=== PATIENT | female | born 1975 | race Caucasian/White ===

== ENCOUNTER 2016-05-13 09:24 | Emergency (ER) | payer OTHER ==
[2016-05-13 10:05] VITALS: BP 154/91
--- NOTE | 2016-05-13 10:38 | UC ---
Palpitation/Dysrhythmia HP - HPI Summary HPI Summary: 40 YO female states she had had palpitations and anxiety that started soon after having her gall bladder out last month some vague chest discomfort no SOB she has had tremors - History of Current Complaint Chief Complaint: UCChestPain Stated Complaint: BLOOD PRESSURE CONCERNS Time Seen by Provider: 05/13/16 10:17 Hx Obtained From: Patient Hx Last Menstrual Period: 11/28/15 Onset/Duration: Gradual Onset, Lasting Weeks Timing: Constant Severity Initially: Mild Severity Currently: Moderate Pain Intensity: 2 Pain Scale Used: 0-10 Numeric Character: Fast, Pounding Alleviating Factor(s): Nothing Associated Signs & Symptoms: Positive: Chest Pain. Negative: Lightheadedness, Dizzy, Syncope, Shortness of Breath, Diaphoresis, Nausea, Vomiting - Risk Factors Pulmonary Embolism: Recent Surgery - Allergy/Home Medications Allergies/Adverse Reactions: Allergies Allergy/AdvReac Type Severity Reaction Status Date / Time Amoxicillin Allergy Rash Verified 05/13/16 10:00 Penicillins Allergy Rash Verified 05/13/16 10:00 Sulfa Antibiotics Allergy Vomiting Verified 05/13/16 10:00 Home Medications: Home Medications Bismuth Subsalicylate* [Peptic Relief*] 527 mg PO Q2H PRN 05/13/16 [History Confirmed 05/13/16] Lisinopril TAB* [Prinivil TAB*] 10 mg PO DAILY 05/13/16 [History Confirmed 05/13] Simethicone [Gas-X Extra Strength] 125 - 250 mg PO Q24H PRN 05/13/16 [History Confirmed 05/13/16] PMH/Surg Hx/FS Hx/Imm Hx Endocrine History Of: Denies: Diabetes, Thyroid Disease Cardiovascular History Of: Reports: Cardiac Disorders - murmur, Hypertension Respiratory History Of: Denies: COPD, Asthma GI/ History Of: Denies: Ulcer - Surgical History Surgical History: Yes Surgery Procedure, Year, and Place: Cholecystectomy, 04/11/16, [place]; C- Section, 2012, [place]; , 2003, [place]; T&A, ~1981, [place] - Family History Known Family History: Positive: Hypertension, Diabetes, Other - no hx DVT - Social History Alcohol Use: None Substance Use Type: None Smoking Status (MU): Never Smoked Tobacco - Immunization History Most Recent Influenza Vaccination: 04/12/16 Review of Systems Constitutional: Negative Skin: Negative Eyes: Negative ENT: Negative Respiratory: Negative Cardiovascular: Palpitations, Chest Pain Gastrointestinal: Negative Genitourinary: Negative Motor: Negative Neurovascular: Negative Musculoskeletal: Negative Neurological: Negative Psychological: Negative All Other Systems Reviewed And Are Negative: Yes Physical Exam Triage Information Reviewed: Yes Appearance: Well-Appearing, No Pain Distress, Well-Nourished, Obese Vital Signs: Initial Vital Signs Temp 98.7 F 05/13/16 09:46 Pulse 124 05/13/16 09:46 Resp 18 05/13/16 09:46 BP 154/91 05/13/16 09:46 Pulse Ox 100 05/13/16 09:46 Vital Signs Reviewed: Yes Eyes: Positive: Conjunctiva Clear ENT: Positive: Normal ENT inspection Neck: Positive: Supple, Nontender, No Lymphadenopathy Respiratory: Positive: Lungs clear, Normal breath sounds, No respiratory distress Cardiovascular: Positive: RRR, No Murmur, Tachycardia Musculoskeletal: Positive: ROM Intact, No Edema Neurological: Positive: Alert Psychological Exam: Normal Skin Exam: Normal Diagnostics - EKG Cardiac Rate: Tachycardia Ectopy: None ST Segment: Normal Palpitations Course/Dx - Course Course Of [facility] to ER - Differential Dx/Diagnosis Provider Diagnoses: palpitations/sinus tachycardia/recent surgery Discharge - Discharge Plan Condition: Stable Disposition: [facility] Referrals: VIOLA Good [Primary Care Provider] -
== END 2016-05-13 10:32 | disposition left against medical advice (07) ==
LOC: UCCORT 09:24
DX: R00.2 Palpitations (principal); R00.0 Tachycardia, unspecified; Z90.49 Acquired absence of other specified parts of digestive tract; Z98.890 Other specified postprocedural states; Z88.1 Allergy status to other antibiotic agents; Z88.0 Allergy status to penicillin; Z88.2 Allergy status to sulfonamides; R01.1 Cardiac murmur, unspecified; I10 Essential (primary) hypertension
CPT/HCPCS: 93005; 99212; G0463

== ENCOUNTER 2017-07-04 08:04 | Emergency (ER) | payer OTHER ==
[2017-07-04 08:42] VITALS: BP 139/65
--- NOTE | 2017-07-04 08:52 | UC ---
Throat Pain/Nasal [place]den HPI - HPI Summary HPI Summary: SINUS PAIN AND PRESSURE X 1 WEEK + NASAL CONGESTION , PND, COUGH NO FEVER, + CHILLS - History of Current Complaint Chief Complaint: UCRespiratory Stated Complaint: SINUSES Time Seen by Provider: 07/04/17 08:39 Hx Obtained From: Patient Hx Last Menstrual Period: 07/01/17 Onset/Duration: Gradual Onset, Lasting Days - 7, Still Present Severity: Moderate Pain Intensity: 7 Cough: Nonproductive Associated Signs & Symptoms: Positive: Sinus Discomfort, Nasal Discharge. Negative: Wheezing, Hoarseness, Fever, Rash - Allergies/Home Medications Allergies/Adverse Reactions: Allergies Allergy/AdvReac Type Severity Reaction Status Date / Time amoxicillin Allergy Rash Verified 07/04/17 08:33 Penicillins Allergy Rash Verified 07/04/17 08:33 Sulfa (Sulfonamide Allergy Vomiting Verified 07/04/17 08:33 Antibiotics) Home Medications: Home Medications Amlodipine Besylate [Norvasc 5 mg tab] 5 mg PO DAILY 07/04/17 [History Confirmed 07/04/17] Escitalopram (NF) [Lexapro 20 mg (NF)] 20 mg PO DAILY 07/04/17 [History Confirmed 07/04/17] Nadolol TAB* [Corgard TAB*] 40 mg PO BEDTIME 07/04/17 [History Confirmed ] hydrOXYzine HCL TAB* [Atarax 25 MG TAB*] 25 mg PO TID PRN 07/04/17 [History Confirmed 07/04/17] PMH/Surg Hx/FS Hx/Imm Hx Cardiovascular History: Hypertension - Surgical History Surgical History: Yes Surgery Procedure, Year, and Place: Cholecystectomy, 04/11/16, [place]; C- Section, 2012, [place]; , 2003, [place]; T&A, ~1982, [place] - Family History Known Family History: Positive: Hypertension, Diabetes, Other - no hx DVT - Social History Alcohol Use: None Substance Use Type: None Smoking Status (MU): Never Smoked Tobacco - Immunization History Most Recent Influenza Vaccination: 04/12/16 Review of Systems Constitutional: Chills, Fatigue Skin: Negative Eyes: Negative ENT: Sore Throat, Ear Ache, Nasal Discharge Respiratory: Cough Cardiovascular: Negative Is Patient Immunocompromised?: No All Other Systems Reviewed And Are Negative: Yes Physical Exam Triage Information Reviewed: Yes Appearance: Well-Appearing, No Pain Distress, Well-Nourished Vital Signs: Initial Vital Signs Temp 98.5 F 07/04/17 08:36 Pulse 77 07/04/17 08:36 Resp 18 07/04/17 08:36 BP 139/65 07/04/17 08:36 Pulse Ox 97 07/04/17 08:36 Vital Signs Reviewed: Yes Eyes: Positive: Conjunctiva Clear ENT: Positive: Normal ENT inspection, Hearing grossly normal, Pharyngeal erythema, Nasal congestion, Nasal drainage, TMs normal, Sinus tenderness Neck: Positive: Supple, Nontender, No Lymphadenopathy Respiratory: Positive: Chest non-tender, Lungs clear, Normal breath sounds Cardiovascular: Positive: RRR, No Murmur, Pulses Normal Skin Exam: Normal Throat Pain/Nasal Course/Dx - Differential Dx/Diagnosis Provider Diagnoses: SINUSITIS Discharge - Discharge Plan Condition: Stable Disposition: HOME Prescriptions: Ciprofloxacin TAB* [Cipro 500 MG TAB*] 500 mg PO BID #20 tab Patient Education Materials: Sinusitis (ED) Referrals: VIOLA Good [Primary Care Provider] - 7 Days
== END 2017-07-04 08:55 | disposition home or self-care (01) ==
LOC: UCCORT 08:04
DX: J32.9 Chronic sinusitis, unspecified (principal); I10 Essential (primary) hypertension
CPT/HCPCS: 99212; G0463

== ENCOUNTER 2019-07-21 10:02 | Emergency (ER) | payer OTHER ==
[2019-07-21 10:23] VITALS: BP 151/90
--- NOTE | 2019-07-21 10:36 | UC ---
Throat Pain/Nasal Hayden HPI - HPI Summary HPI Summary: sinus pain / pressure x 10 days nasal congestion , pnd , sore throat, dry cough , fever, chills and body aches, facial pain is 4 out 10 , worse with bending down , better with rest, - History of Current Complaint Chief Complaint: UCRespiratory Stated Complaint: COLD, SINUS CONGESTION Time Seen by Provider: 07/21/19 10:15 Hx Obtained From: Patient Hx Last Menstrual Period: "last week" ?: No Onset/Duration: Gradual Onset, Lasting Days - 10, Still Present Severity: Moderate Pain Intensity: 0 Associated Signs & Symptoms: Positive: Sinus Discomfort, Nasal Discharge, Fever. Negative: Rash - Allergies/Home Medications Allergies/Adverse Reactions: Allergies Allergy/AdvReac Type Severity Reaction Status Date / Time amoxicillin Allergy Rash Verified 07/21/19 10:18 Penicillins Allergy Rash Verified 07/21/19 10:18 Sulfa (Sulfonamide Allergy Vomiting Verified 07/21/19 10:18 Antibiotics) Home Medications: Home Medications Amlodipine Besylate [Norvasc 5 mg tab] 10 mg PO DAILY 07/04/17 [History Confirmed 07/21/19] Escitalopram * [Lexapro 20 mg (NF)] 20 mg PO DAILY 07/04/17 [History Confirmed 07/21/19] hydrOXYzine HCL TAB* [Atarax 25 MG TAB*] 25 mg PO TID PRN 07/04/17 [History Confirmed 07/21/19] DOXYcycline CAP(*) [DOXYcycline 100MG CAP(*)] 100 mg PO BID #20 cap 07/21/19 [Rx ] Guaifen/Phenyleph/Acetaminophn [Tylenol Sinus Severe Caplet] 2 each PO Q6H PRN 07/21/19 [History Confirmed 07/21/19] Vitamin THERAPEUTIC TAB* [Theragran TAB*] 1 tab PO ONCE 07/21/19 [History Confirmed 07/21/19] PMH/Surg Hx/FS Hx/Imm Hx Psychological History: Anxiety - Surgical History Surgical History: Yes Surgery Procedure, Year, and Place: Cholecystectomy, 2015, [place]; , 2012, [place]; , 2003, [place]; T&A, ~1982, [place] - Family History Known Family History: Positive: Hypertension, Diabetes, Other - no hx DVT - Social History Alcohol Use: None Substance Use Type: None Smoking Status (MU): Never Smoked Tobacco - Immunization History Most Recent Influenza Vaccination: 04/12/16 Review of Systems All Other Systems Reviewed And Are Negative: Yes Constitutional: Positive: Negative Skin: Positive: Negative Eyes: Positive: Negative ENT: Positive: Sore Throat, Ear Ache, Nasal Discharge, Sinus Congestion, Sinus Pain/Tenderness Respiratory: Positive: Cough Is Patient Immunocompromised?: No Physical Exam Triage Information Reviewed: Yes Appearance: Well-Appearing, No Pain Distress, Well-Nourished Vital Signs: Initial Vital Signs Temp 98.2 F 07/21/19 10:15 Pulse 90 07/21/19 10:15 Resp 18 07/21/19 10:15 BP 151/90 07/21/19 10:15 Pulse Ox 98 07/21/19 10:15 Vital Signs Reviewed: Yes Eye Exam: Normal Eyes: Positive: Conjunctiva Clear ENT: Positive: Normal ENT inspection, Hearing grossly normal, Pharyngeal erythema, Nasal congestion, Nasal drainage, TMs normal, Sinus tenderness. Negative: Pharynx normal, TM bulging, TM dull, TM red, Tonsillar swelling, Tonsillar exudate Neck exam: Normal Neck: Positive: Supple, Nontender, No Lymphadenopathy Respiratory Exam: Normal Respiratory: Positive: Chest non-tender, Lungs clear, Normal breath sounds Cardiovascular: Positive: RRR, No Murmur, Pulses Normal Throat Pain/Nasal Course/Dx - Differential Dx/Diagnosis Provider Diagnosis: Maxillary sinusitis Discharge ED - Sign-Out/Discharge Documenting (check all that apply): Patient Departure All imaging exams completed and their final reports reviewed: No Studies - Discharge Plan Condition: Stable Disposition: HOME Prescriptions: DOXYcycline CAP(*) [DOXYcycline 100MG CAP(*)] 100 mg PO BID #20 cap Patient Education Materials: Sinusitis (ED) Referrals: Kana Mae MD [Primary Care Provider] - If Needed - Billing Disposition and Condition Condition: STABLE Disposition: Home
== END 2019-07-21 10:34 | disposition home or self-care (01) ==
LOC: UCCORT 10:02
DX: J32.0 Chronic maxillary sinusitis (principal); F41.9 Anxiety disorder, unspecified; J02.9 Acute pharyngitis, unspecified; R09.89 Other specified symptoms and signs involving the circulatory and respiratory systems; R09.81 Nasal congestion; Z88.0 Allergy status to penicillin; Z88.2 Allergy status to sulfonamides; Z79.899 Other long term (current) drug therapy
CPT/HCPCS: 99212; G0463